=== PATIENT | female | born 1955 | race Caucasian/White ===

== ENCOUNTER 2025-01-05 12:19 | Inpatient (IN) | payer MEDICARE ==
[~2025-01-05] VITALS: Ht 157.5 cm; Wt 94.8 kg
[2025-01-05 13:40] LABS: KETONE, URINE AUTO RFX NEGATIVE (NEGATIVE); LEUKOCYTE ESTERASE UR AUTO RFX NEGATIVE (NEGATIVE); NITRITE, URINE AUTO RFX NEGATIVE (NEGATIVE); RBC, URINE AUTO RFX 0 /HPF (0-3); SQUAM EPITHELIAL CELL UR AURFX 1 /HPF (0-6); WBC, URINE AUTO RFX 0 /HPF (0-3)
[2025-01-05 15:44] LABS: BASO # 0.0 10^3/uL (0.0-0.2); BASO % 0.2 % (0.0-1.0); EOS # 0.1 10^3/uL (0.0-0.5); EOS % 0.8 % (0.0-3.0); LYMPH # 2.0 10^3/uL (1.5-5.0); LYMPH % 15.1 % (24.0-44.0); MONO # 1.0 10^3/uL (0.0-0.8); MONO % 7.8 % (2.0-8.0); NEUTROPHILS # 9.8 10^3/uL (1.5-8.5); NEUTROPHILS % 75.5 % (36.0-66.0); PLATELET COUNT, AUTOMATED 271 10^3/uL (150-450)
[2025-01-05 15:50] LABS: ERYTHROCYTE SEDIMENTATION RATE 30 mm/hr (0-30)
[2025-01-05 16:04] LABS: ALT/SGPT 34.0 U/L (7.0-40); AST/SGOT 28.0 U/L (<34); C REACTIVE PROTEIN QUANTITATIV 4.05 MG/DL (<1.0); CALCIUM LEVEL 9.5 MG/DL (8.3-10.6); CARBON DIOXIDE LEVEL 28.0 MMOL/L (20-31); CHLORIDE LEVEL 100.0 MMOL/L (98-107); CREATININE FOR GFR 0.81 MG/DL (0.55-1.30); GLOMERULAR FILTRATION RATE 79.0 (>45); POTASSIUM SERUM 4.2 MMOL/L (3.5-5.1); SODIUM LEVEL 138.0 MMOL/L (136-145)
[2025-01-05] MEDS: NS (Normal Saline) 0.9% 1,000 ML IV ONE (16:54)
[2025-01-05] MEDS: PIPERACILLIN/TAZOBACTAM SOD 3.375 GM in DEXTROSE 5% (D5W) ADV/MINI-BAG 50 ML IV ONE (17:20)
[2025-01-05] MEDS: ACETAMINOPHEN 500 MG TAB PO ONE (17:20)
[2025-01-05] MEDS ORDERED: MORPHINE 4 MG/ML 1 ML VIAL IV PRN (17:55)
[2025-01-05] MEDS ORDERED: PERCOCET 5MG/325MG TAB PO PRN (17:55)
[2025-01-05] MEDS ORDERED: MED REC COMMENT (18:15)
[2025-01-05] MEDS ORDERED: HOME MED LIST COMPLETE! XX SCH (18:15)
[2025-01-05] MEDS: NS (Normal Saline) 0.9% 1,000 ML IV SCH (19:06)
[2025-01-05] MEDS: KETOROLAC 30 MG/ML 1 ML VIAL IV SCH (20:53)
[2025-01-05 21:15] VITALS: BP 126/60; TEMP 97.6; O2SAT 95
[2025-01-05] MEDS: PIPERACILLIN/TAZOBACTAM SOD 3.375 GM in DEXTROSE 5% (D5W) ADV/MINI-BAG 50 ML IV SCH (23:56)
[2025-01-05] MEDS: ACETAMINOPHEN 325 MG TAB PO PRN (23:57)
[2025-01-06] VITALS: BP 117/56; TEMP 97.1; O2SAT 96
[2025-01-06 04:00] VITALS: BP 114/53; TEMP 96.6; O2SAT 96
[2025-01-06 07:51] LABS: PLATELET COUNT, AUTOMATED 215 10^3/uL (150-450)
[2025-01-06 08:00] VITALS: BP 126/76; TEMP 98; O2SAT 96
[2025-01-06 08:00] LABS: CALCIUM LEVEL 8.4 MG/DL (8.3-10.6); CARBON DIOXIDE LEVEL 26.0 MMOL/L (20-31); CHLORIDE LEVEL 107.0 MMOL/L (98-107); CREATININE FOR GFR 0.79 MG/DL (0.55-1.30); GLOMERULAR FILTRATION RATE 81.4 (>45); POTASSIUM SERUM 4.3 MMOL/L (3.5-5.1); SODIUM LEVEL 144.0 MMOL/L (136-145)
[2025-01-06] MEDS: ENOXAPARIN 40 MG/0.4 ML SYRINGE (J1650 PER 10MG) SC SCH (11:00)
[2025-01-06 12:00] VITALS: BP 132/64; TEMP 97.5; O2SAT 96
[2025-01-06] MEDS: METAMUCIL PACKET PO SCH (12:48)
[2025-01-06] MEDS ORDERED: LEVO1TAB40 PO (15:46)
[2025-01-06] MEDS ORDERED: OXYC1TAB23 PO (15:46)
[2025-01-06] MEDS ORDERED: METR-265 PO (15:46)
== END 2025-01-06 17:50 | disposition home or self-care (01) | DRG 392 ==
LOC: M ED 12:19 → M ED INP 17:51 → M PED 21:10
PROVIDERS: ADMIT Internal Medicine; ATTEND Internal Medicine
DX: K52.9 Noninfective gastroenteritis and colitis, unspecified (principal); E66.9 Obesity, unspecified; K58.2 Mixed irritable bowel syndrome; R73.03 Prediabetes; R10.31 Right lower quadrant pain; K37 Unspecified appendicitis; Z79.899 Other long term (current) drug therapy; Z68.38 Body mass index [BMI] 38.0-38.9, adult; Z88.1 Allergy status to other antibiotic agents; Z88.2 Allergy status to sulfonamides; Z88.5 Allergy status to narcotic agent; Z91.030 Bee allergy status